=== PATIENT | female | born 1950 | race Caucasian/White ===

== ENCOUNTER → 2016-10-01 | Emergency (ER) | payer OTHER ==
--- NOTE | 2016-10-01 15:07 | ED ORDER SUMMARY ---
..... Patient: CODIE BASS OrderSheet [facility] VisitID: [id number] [address] [place] [address] 65y, F Registration Date/Time: 10/01/2016 ORDER SHEET Weight: 77.1 kg (stated) Allergies: No Known Drug Allergy GENERAL ORDERS: MEDICATION ORDERS: Tylenol PO 1,000 mg (NOW) (14:45 10/01/2016 EHevy R.N. verbal order read back to Mary Jo A.R.N.P.) (14:49 Lazaro R.N.) IV FLUIDS: ORDER SHEET NOTES: [Electronically signed by Randi Nix A.R.N.PThor (16:22 10/01/2016)] [Electronically signed by Kateryna Lantigua R.N. (15:08 10/08/2016)] [Electronically locked/signed by Kateryna Lantigua R.N. (15:08 10/08/2016)]
--- NOTE | 2016-10-01 15:07 | ED CLINICAL REPORT ---
Clinical Report - Physicians/Mid Levels [facility] [address] [place] [address] 10/01/2016 13:20 Patient: CODIE BASS Time Seen: 14:11; initial patient contact, initial documentation, patient care assumed. Arrived- By private vehicle. Historian- patient and spouse. HISTORY OF PRESENT ILLNESS Chief Complaint: INJURY TO HEAD. Location of injuries- head. The injury occurred just prior to arrival. Occurred at home. The patient sustained a single moderate blow (hit head on shelf). The patient complains of mild pain. The patient sustained a blow to the head. No neck pain, loss of consciousness or seizure. Not dazed. REVIEW OF SYSTEMS No loss of vision or chest pain. She sustained skin laceration. All systems otherwise negative, except as recorded above. PAST HISTORY See nurses notes. PROBLEMS: Abdominal Pain. Vomiting. Contusion. LNMP - Last Normal Menstrual Period. --13:48 Abby Landaverde R.N. ADDITIONAL SURGERIES: Cataract Surgery. Cholecystectomy. Previous Abdominal Surgery. Vaginal lift. --13:48 Abby Landaverde R.N. Interventi. Tetanus immunization status is up-to-date. SOCIAL HISTORY Smoker - current status unknown. No alcohol use or drug use. No recent travel. Is a local resident. FAMILY HISTORY No significant family medical history. ADDITIONAL NOTES The nursing notes have been reviewed with agreement regarding the chief complaint, HPI, ROS, PMH and patient medications and allergies. PHYSICAL EXAM Vital Signs: 10/01/2016 13:43 BP: 132/81. HR: 72. RR: 18. O2 saturation: 96%. Temp: 98.1 F. Appearance: Alert. No acute distress. Head: Head tender. No swelling of head. Forehead: mild tenderness and subcutaneous 2.0 cm laceration of the upper left side of the forehead. SEE LACERATION PROCEDURE NOTE #1. No erythema, swelling, abrasion, ecchymosis or puncture wound. No foreign body or deformity. Eyes: Pupils equal, round and reactive to light. EOM intact. ENT: No dental injury. Pharynx normal. Neck: Painless ROM. Non-tender. Skin: Skin intact. Skin warm and dry. Normal skin color. Normal skin turgor. Extremities: Normal inspection. Pelvis stable. Extremities atraumatic. No lower extremity edema. Neuro: Oriented X 3. Mood/affect normal. Speech normal. No motor deficit. Normal gait. No sensory deficit. PROGRESS AND PROCEDURES Laceration Repair: Location: forehead. Length: 2 cm. Complexity: simple (sutured). Wound depth/shape- subcutaneous, linear and flap-like and involving fascia. Wound is clean. No contamination, foreign body or contused tissue present. No tissue loss. Exam note: L shape. Distal neuro/vascular/tendon status normal. Tendon not examined. No tendon deficit or laceration or tendon injury. Prepped with Betadine. Wound explored, cleansed, irrigated and examined to the base in bloodless field with normal saline. Closure of superficial layer: (dermabond). Skin adhesive used. Post-procedure: she is stable and there are no complications. Bleeding is controlled and neuro-vascular status is intact distal to the wound. Estimated blood loss: 5 mL. Course of Care: 1505. no bleeding, dermabond dry, wound edges approximated well. Patient and spouse counseled in person regarding the patient's stable condition and diagnosis. 15:06. Differential Diagnosis: Other possible considerations: head injury, fx, lac. Above considerations are based on history and physical exam. Differential diagnosis was discussed with patient. Disposition: Discharged home in good and improved condition (15:07). Condition: good and stable. CLINICAL IMPRESSION Single deep laceration to the forehead.Treatment of laceration not delayed. No infection or foreign body present. INSTRUCTIONS Warnings: GENERAL WARNINGS: Return or contact your physician immediately if your condition worsens or changes unexpectedly, if not improving as expected, or if other problems arise. Specifically return if problem worsens. Follow-up: Follow up with your doctor in about three days as needed. Summary of care provided to patient. Understanding of the discharge instructions verbalized by patient. (Electronically signed by Randi Nix A.R.N.P. 10/01/2016 16:22)
--- NOTE | 2016-10-01 15:07 | ED NURSING NOTES ---
Clinical Report - Nurses [facility] [address] [place] [address] 10/01/2016 13:20 Patient: CODIE BASS TRIAGE Triage time 13:43 Oct 01 2016. Acuity: LEVEL 4. Chief Complaint: INJURY TO FOREHEAD. Alert. No acute distress. LISS COMA SCORE: [place] Coma Scale: 15- eyes open spontaneously (4); best verbal response- oriented x 4 (5); best motor response- obeys commands (6). --13:49 Abby Landaverde R.N. 13:43 10/01/16. BP: 132/81. HR: 72. RR: 18. O2 saturation: 96%. Temp: 98.1 F. Pain level now 5/10. --13:49 Abby Landaverde R.N. Weight: 77.1 kg stated. Height/Length: 66 inches Per Patient. BMI: 27.4. --13:43 Abby Landaverde R.N. Medications None. --13:47 Abby Landaverde R.N. Medication/allergy information source: the patient. --13:49 Abby Landaverde R.N. Allergies No Known Drug Allergy. --13:47 Abby Landaverde R.N. History Arrived by private vehicle. Historian: patient. Accompanied by family. Primary physician (Dr. Ng). ( Left side head lac [place], hit her head on a shelve while at home. Denies LOC. Tdap up to date.). This occurred just prior to arrival. She sustained a laceration. Treatment [place] PICKLER: None. PAST MEDICAL HX: Tetanus status: up-to-date. Has not received seasonal influenza immunization. NUTRITIONAL RISK ASSESSMENT: The nutritional risk assessment revealed no deficiencies. FUNCTIONAL ASSESSMENT: Functional assessment: no impairments noted. LEARNING NEEDS ASSESSMENT: The learning needs assessment revealed no barriers. SKIN INTEGRITY ASSESSMENT: Skin integrity risk assessment completed. No skin integrity risk identified. --13:49 Abby Landaverde R.N. PROBLEMS: Abdominal Pain. Vomiting. Contusion. LNMP - Last Normal Menstrual Period. --13:48 Abby Landaverde R.N. ADDITIONAL SURGERIES: Cataract Surgery. Cholecystectomy. Previous Abdominal Surgery. Vaginal lift. --13:48 Abby Landaverde R.N. Interventions ID band on patient. To room. --13:49 Abby Landaverde R.N. PHYSICAL ASSESSMENT HEENT: Left frontal area: subcutaneous laceration. --13:49 Abby Landaverde R.N. To room via wheelchair. GENERAL / NEURO / PSYCH: Alert. Oriented X 4. Appears in no acute distress. Appears in pain. [place] Coma Scale: 15- eyes open spontaneously (4); best verbal response- oriented and converses (5); best motor response- obeys commands (6). HEENT: Head: signs of head trauma present. Forehead: tenderness, swelling, erythema, ecchymosis and 3.0 cm laceration with controlled bleeding of the upper left side of the forehead. No deformity. Pupils equal, round and reactive to light. Mouth abnormal on inspection. Voice abnormal. Nasal injury noted. Dental injury noted. Mucous membranes are pink. RESPIRATORY: Respirations not labored. CVS: Capillary refill less than 2 seconds. BACK: No neck or back tenderness. ROM normal to the neck and back. SKIN: Skin is warm and dry. --14:45 Kateryna Lantigua R.N. NURSING PROGRESS NOTES Care transferred and report given (JAN Patel). --14:08 Abby Landaverde R.N. ( pt brought to room 15. 4x4 gauze applied to forehead. Bleeding controlled.). --14:08 Abby Landaverde R.N. 14:49 10/01/2016 Tylenol (Acetaminophen) PO Capsules 1000 mg given. Allergies verified and confirmed 5 rights. --14:49 Kateryna Lantigua R.N. Reassurance given. WOUND REPAIR: Wound repair performed by MONITOR AND STORAGE BIN TENDER (Randi). Procedure: wound repaired with Dermabond. Post-procedure: she was stable, no complications, bleeding controlled and neuro-vascular status intact distal to wound. ( Pt tolerated well, c/o of H/A, Tylenol 1000mg given as ordered). The patient is calm and resting quietly. Overall patient status is the same- she states feels the same. GENERAL / NEURO / PSYCH: The patient reports left-sided and frontal headache that is mild in severity, is described as dull and is constant. Alert. No decreased awareness. Oriented X 4. HEENT: Denies eye pain or earache. RESPIRATORY: Denies difficulty breathing. No respiratory distress present. No respiratory distress. Breath sounds normal. No abnormal breath sounds. CVS: Capillary refill less than 2 seconds. GI / : Denies nausea. SKIN: Skin is warm and dry. No diaphoresis noted or cyanosis. Patient identifiers checked. Call light placed in reach. Side rails up x 2. Bed placed in lowest position. Brakes of bed on. Brakes of chair on. --14:53 Kateryna Lantigua R.N. 14:30 10/01/16. BP: 134/71 taken on the left arm, via an automated monitor, while lying. HR: 99. RR: 16. O2 saturation: 99% on room air. Pain level now: 01/05. --14:53 Kateryna Lantigua R.N. DISPOSITION / DISCHARGE 15:15 10/01/2016 Tylenol PO Response: no adverse reaction pain is improving. Symptoms have improved the patient feels better. --15:25 Kateryna Lantigua R.N. Departure time: 1520 PM. Condition at departure: improved and stable. The goals identified in the patient's plan of care were met. No learning barriers present. Discharge instructions provided and reviewed with the patient. Reviewed medication(s) side effects, precautions, dosing and course information. Reviewed wound care and skin care instructions. The patient has no diet restrictions. Activity restrictions (rest) reviewed. Patient and spouse verbalized understanding. Written instructions provided in Jordanian. ( All instructions reviewed and wound care, verbalizes understanding, left wound site intact/ no bleeding). No stop smoking instructions. The patient was discharged by the nurse practitioner. She was discharged home and accompanied by spouse. She left the Emergency Department ambulatory and via private vehicle. Spouse driving. FALL RISK ASSESSMENT: Fall risk assessment completed. No fall risk identified. LISS COMA SCORE: [place] Coma Scale: 15- eyes open spontaneously (4); best verbal response- oriented x 4 (5); best motor response- obeys commands (6). --15:27 Kateryna Lantigua R.N. 15:15 10/01/16. BP: 144/65 (regular adult cuff) taken on the left arm, via an automated monitor, while sitting. HR: 76. RR: 18. O2 saturation: 100% on room air. Temp: 97.9 F (oral). Pain level now: 11/07. --15:27 Kateryna Lantigua R.N. Locked/Released at 10/08/2016 15:08 by Kateryna Lantigua R.N.
--- NOTE | 2016-10-01 15:07 | ED ORDER SUMMARY ---
..... Patient: CODIE BASS OrderSheet [facility] VisitID: [id number] [address] [place] [address] 65y, F Registration Date/Time: 10/01/2016 ORDER SHEET Weight: 77.1 kg (stated) Allergies: No Known Drug Allergy GENERAL ORDERS: MEDICATION ORDERS: Tylenol PO 1,000 mg (NOW) (14:45 10/01/2016 EHevy R.N. verbal order read back to Mary Jo A.R.N.P.) (14:49 Lazaro R.N.) IV FLUIDS: ORDER SHEET NOTES: [Electronically signed by Randi Nix A.R.N.PThor (16:22 10/01/2016)] [Electronically signed by Kateryna Lantigua R.N. (15:08 10/08/2016)] [Electronically locked/signed by Kateryna Lantigua R.N. (15:08 10/08/2016)]
--- NOTE | 2016-10-01 15:07 | ED NURSING NOTES ---
Clinical Report - Nurses [facility] [address] [place] [address] 10/01/2016 13:20 Patient: CODIE BASS TRIAGE Triage time 13:43 Oct 01 2016. Acuity: LEVEL 4. Chief Complaint: INJURY TO FOREHEAD. Alert. No acute distress. LISS COMA SCORE: [place] Coma Scale: 15- eyes open spontaneously (4); best verbal response- oriented x 4 (5); best motor response- obeys commands (6). --13:49 Abby Landaverde R.N. 13:43 10/01/16. BP: 132/81. HR: 72. RR: 18. O2 saturation: 96%. Temp: 98.1 F. Pain level now 5/10. --13:49 Abby Landaverde R.N. Weight: 77.1 kg stated. Height/Length: 66 inches Per Patient. BMI: 27.4. --13:43 Abby Landaverde R.N. Medications None. --13:47 Abby Landaverde R.N. Medication/allergy information source: the patient. --13:49 Abby Landaverde R.N. Allergies No Known Drug Allergy. --13:47 Abby Landaverde R.N. History Arrived by private vehicle. Historian: patient. Accompanied by family. Primary physician (Dr. Ng). ( Left side head lac [place] [employer], hit her head on a shelve while at home. Denies LOC. Tdap up to date.). This occurred just prior to arrival. She sustained a laceration. Treatment [place]: None. PAST MEDICAL HX: Tetanus status: up-to-date. Has not received seasonal influenza immunization. NUTRITIONAL RISK ASSESSMENT: The nutritional risk assessment revealed no deficiencies. FUNCTIONAL ASSESSMENT: Functional assessment: no impairments noted. LEARNING NEEDS ASSESSMENT: The learning needs assessment revealed no barriers. SKIN INTEGRITY ASSESSMENT: Skin integrity risk assessment completed. No skin integrity risk identified. --13:49 Abby Landaverde R.N. PROBLEMS: Abdominal Pain. Vomiting. Contusion. LNMP - Last Normal Menstrual Period. --13:48 Abby Landaverde R.N. ADDITIONAL SURGERIES: Cataract Surgery. Cholecystectomy. Previous Abdominal Surgery. Vaginal lift. --13:48 Abby Landaverde R.N. Interventions ID band on patient. To room. --13:49 Abby Landaverde R.N. PHYSICAL ASSESSMENT HEENT: Left frontal area: subcutaneous laceration. --13:49 Abby Landaverde R.N. To room via wheelchair. GENERAL / NEURO / PSYCH: Alert. Oriented X 4. Appears in no acute distress. Appears in pain. [place] Coma Scale: 15- eyes open spontaneously (4); best verbal response- oriented and converses (5); best motor response- obeys commands (6). HEENT: Head: signs of head trauma present. Forehead: tenderness, swelling, erythema, ecchymosis and 3.0 cm laceration with controlled bleeding of the upper left side of the forehead. No deformity. Pupils equal, round and reactive to light. Mouth abnormal on inspection. Voice abnormal. Nasal injury noted. Dental injury noted. Mucous membranes are pink. RESPIRATORY: Respirations not labored. CVS: Capillary refill less than 2 seconds. BACK: No neck or back tenderness. ROM normal to the neck and back. SKIN: Skin is warm and dry. --14:45 Kateryna Lantigua R.N. NURSING PROGRESS NOTES Care transferred and report given (JAN Patel). --14:08 Abby Landaverde R.N. ( pt brought to room 15. 4x4 gauze applied to forehead. Bleeding controlled.). --14:08 Abby Landaverde R.N. 14:49 10/01/2016 Tylenol (Acetaminophen) PO Capsules 1000 mg given. Allergies verified and confirmed 5 rights. --14:49 Kateryna Lantigua R.N. Reassurance given. WOUND REPAIR: Wound repair performed by CARROT GRADER INSPECTOR (Randi). Procedure: wound repaired with Dermabond. Post-procedure: she was stable, no complications, bleeding controlled and neuro-vascular status intact distal to wound. ( Pt tolerated well, c/o of H/A, Tylenol 1000mg given as ordered). The patient is calm and resting quietly. Overall patient status is the same- she states feels the same. GENERAL / NEURO / PSYCH: The patient reports left-sided and frontal headache that is mild in severity, is described as dull and is constant. Alert. No decreased awareness. Oriented X 4. HEENT: Denies eye pain or earache. RESPIRATORY: Denies difficulty breathing. No respiratory distress present. No respiratory distress. Breath sounds normal. No abnormal breath sounds. CVS: Capillary refill less than 2 seconds. GI / : Denies nausea. SKIN: Skin is warm and dry. No diaphoresis noted or cyanosis. Patient identifiers checked. Call light placed in reach. Side rails up x 2. Bed placed in lowest position. Brakes of bed on. Brakes of chair on. --14:53 Kateryna Lantigua R.N. 14:30 10/01/16. BP: 134/71 taken on the left arm, via an automated monitor, while lying. HR: 99. RR: 16. O2 saturation: 99% on room air. Pain level now: 01/05. --14:53 Kateryna Lantigua R.N. DISPOSITION / DISCHARGE 15:15 10/01/2016 Tylenol PO Response: no adverse reaction pain is improving. Symptoms have improved the patient feels better. --15:25 Kateryna Lantigua R.N. Departure time: 1520 PM. Condition at departure: improved and stable. The goals identified in the patient's plan of care were met. No learning barriers present. Discharge instructions provided and reviewed with the patient. Reviewed medication(s) side effects, precautions, dosing and course information. Reviewed wound care and skin care instructions. The patient has no diet restrictions. Activity restrictions (rest) reviewed. Patient and spouse verbalized understanding. Written instructions provided in Moroccan. ( All instructions reviewed and wound care, verbalizes understanding, left wound site intact/ no bleeding). No stop smoking instructions. The patient was discharged by the nurse practitioner. She was discharged home and accompanied by spouse. She left the Emergency Department ambulatory and via private vehicle. Spouse driving. FALL RISK ASSESSMENT: Fall risk assessment completed. No fall risk identified. LISS COMA SCORE: [place] Coma Scale: 15- eyes open spontaneously (4); best verbal response- oriented x 4 (5); best motor response- obeys commands (6). --15:27 Kateryna Lantigua R.N. 15:15 10/01/16. BP: 144/65 (regular adult cuff) taken on the left arm, via an automated monitor, while sitting. HR: 76. RR: 18. O2 saturation: 100% on room air. Temp: 97.9 F (oral). Pain level now: 11/07. --15:27 Kateryna Lantigua R.N. Locked/Released at 10/08/2016 15:08 by Kateryna Lantigua R.N.
--- NOTE | 2016-10-08 15:08 | ED MAR SUMMARY ---
..... Medication Administration Record [facility] [address] [place] [address] Patient: CODIE BASS Visit ID: [id number] 65y, F Weight: 77.1 kg Height/Length: 66 in BMI: 27.4 ALLERGIES: No Known Drug Allergy Given 14:49 10/01/2016 Kateryna Lantigua R.N. Medication Administered: TYLENOL [PO] (ACETAMINOPHEN), Dose: 1000 mg Capsules PO. Medication Ordered: Tylenol PO 1,000 mg (NOW).
--- NOTE | 2016-10-08 15:08 | ED MAR SUMMARY ---
..... Medication Administration Record [facility] [address] [place] [address] Patient: CODIE BASS Visit ID: [id number] 65y, F Weight: 77.1 kg Height/Length: 66 in BMI: 27.4 ALLERGIES: No Known Drug Allergy Given 14:49 10/01/2016 Kateryna Lantigua R.N. Medication Administered: TYLENOL [PO] (ACETAMINOPHEN), Dose: 1000 mg Capsules PO. Medication Ordered: Tylenol PO 1,000 mg (NOW).
--- NOTE | 2016-10-08 15:08 | ED DISCHARGE INSTRUCTIONS ---
Patient: CODIE BASS General Instructions [facility] VisitID: [id number] [place] [address] 65y, F Registration Date/Time: 10/01/2016 Single deep laceration to the forehead.Treatment of laceration not delayed. No infection or foreign body present. INSTRUCTIONS Warnings: GENERAL WARNINGS: Return or contact your physician immediately if your condition worsens or changes unexpectedly, if not improving as expected, or if other problems arise. Specifically return if problem worsens. Follow-up: Follow up with your doctor in about three days as needed. Summary of care provided to patient. Understanding of the discharge instructions verbalized by patient. ADDITIONAL INFORMATION Laceration, Face (Suture Or Tape) Alaceration is a cut through the skin. This will require stitches if it is deep. Minor cuts may be treated with surgical tape. Home care The following guidelines will help you care for your laceration at home: If a bandage was applied and it becomes wet or dirty, replace it. Otherwise, leave it in place for the first 24 hours, then change it once a day or as directed. If sutures were used, clean the wound daily: After removing the bandage, wash the area with soap and water. Use a wet cotton swab to loosen and remove any blood or crust that forms. After cleaning, keep the wound clean and dry. Talk with your doctor before applying any antibiotic ointment to the wound. Reapply a fresh bandage. You may remove the bandage to shower as usual after the first 24 hours, but do not soak the area in water (no swimming) until the sutures are removed. If surgical tape was used, keep the area clean and dry. If it becomes wet, blot it dry with a towel. The doctor may prescribe an antibiotic cream or ointment to prevent infection. Do not stop taking this medication until you have have finished the prescribed course or the doctor tells you to stop. The doctor may also prescribe medications for pain. Follow the doctor's instructions for taking these medications.If you have chronic liver or kidney disease or ever had a stomach ulcer or GI bleeding, talk with your doctor before using these medicines. Follow-up care Follow up with your health care provider. Most facial cuts heal in five days with no problem. However, even with proper treatment, a wound infection sometimes occurs. Therefore, check the wound daily for the warning signs listed below. Stitches should not be left in the face for more thanfivedays; otherwise, permanent stitch quispe may form. If surgical tape closures were used, you may remove them yourself afterfivedays, if they have not fallen off by then. When to seek medical care Get prompt medical attention if any of these occur: Increasing pain in the wound Redness, swelling, or pus coming from the wound If sutures come apart or fall out before 5 days If the surgical tape closures fall off before 5 days, or the wound edges reopen Fever of 100.4F (38C) or higher, or as directed by your health care provider Bleeding not controlled by direct pressure Laceration: Will There Be A Scar? A laceration is a cut through one or more layers of the skin. The goal of emergency treatment is to clean the wound and close it to prevent infection, control bleeding and speed healing. Cuts heal because the body is able to repair the skin by "sealing" the edges together with collagen, a kind of "skin cement." How deep your cut is, its location on your body, your age and the way your skin heals all determine how visible the final scar will be. Some persons tend to heal with more scar tissue than others. This cut will probably heal similar to other cuts you have had in the past. What You Can Do: There are a few simple things that you can do to limit the amount of scar that forms: 1) PREVENT INFECTION: An infected wound makes a bigger scar. Keep the wound clean and dry. Change the dressing and apply any ointment/cream as directed. 2) MASSAGE THE WOUND:After the stitches have been removed: Use a moisturizing cream or lotion containing Aloe or Vitamin E Oil and gently massage the skin around the wound with your fingertips (wash your hands first!). Do this twice a day for the first two weeks, then once a day for a month. This will increase the flow of oxygen and blood to the wound and prevent excess scar tissue from building up. 3) AVOID SUN EXPOSURE: During the first six months, avoid sun exposure since the scar may lloyd a much darker color than the skin around it. When in the sun, use SPF #50 (or greater) sun block on the scar, or cover the area with a hat or clothing. What To Expect: -- The cut will be sealed within 2 days and will be strong within 5-10 days. However, it will take at least SIX MONTHS for it to be fully healed. -- During the FIRST THREE MONTHS, you may notice the scar line getting more red or purple in color. The scar may become raised. The skin around the wound may feel thick and lumpy. -- During the FOURTH TO SIXTH MONTHS, this process begins to reverse. The red and purple color will fade, the scar line flattens, and the skin around it feels more normal. -- In most cases, the way the scar line looks after six months is the way it will remain, although there may be some continued improvement up to one year after the injury. Is There Anything Else That Can Be Done? If you do not like the way the scar looks after six months, a plastic surgeon may be able to perform a "scar revision." If you have any questions or problems as your wound heals, contact your doctor or this facility. We will be glad to assist you. You have been given the following additional information: Laceration, Face (Suture Or Tape) Laceration, How To Minimize Scar (Electronically signed by Randi Nix A.R.N.P. 10/01/2016 16:22)
--- NOTE | 2016-10-08 15:08 | ED MED RECONCILIATION SUMMARY ---
Patient: CODIE BASS Medication Reconciliation Report [facility] VisitID: [id number] [address] [place] [address] 65y, F Registration Date/Time: 10/01/2016 Weight: 77.1 kg Height/Length: 66 in. BMI: 27.4 ALLERGIES: No Known Drug Allergy The patient's Home Medications are listed below: NONE. The source(s) of the original Home Medication information: patient The following Medications were given to the patient in the Emergency Department: Tylenol [PO] PO 1000 mg, administered: 10/01/2016 2:49:00 PM The following Medications were prescribed to the patient: None.
--- NOTE | 2016-10-08 15:08 | ED MED RECONCILIATION SUMMARY ---
Patient: CODIE BASS Medication Reconciliation Report [facility] VisitID: [id number] [address] [place] [address] 65y, F Registration Date/Time: 10/01/2016 Weight: 77.1 kg Height/Length: 66 in. BMI: 27.4 ALLERGIES: No Known Drug Allergy The patient's Home Medications are listed below: NONE. The source(s) of the original Home Medication information: patient The following Medications were given to the patient in the Emergency Department: Tylenol [PO] PO 1000 mg, administered: 10/01/2016 2:49:00 PM The following Medications were prescribed to the patient: None.
== END ==
LOC: ED SRH 13:18
DX: S01.81XA Laceration without foreign body of other part of head, initial encounter (principal); W22.8XXA Striking against or struck by other objects, initial encounter; Y93.9 Activity, unspecified; Y92.009 Unspecified place in unspecified non-institutional (private) residence as the place of occurrence of the external cause; Y99.9 Unspecified external cause status
CPT/HCPCS: 82708